=== PATIENT | female | born 1955 | race African-American/Black ===

== ENCOUNTER 2017-03-22 10:27 | Emergency (ER) | payer OTHER ==
[~2017-03-22] VITALS: Ht 152.4 cm; Wt 63.5 kg
[2017-03-22 10:56] VITALS: BP 220/90
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
[2017-03-22] MEDS ORDERED: ORPH100T PO (12:29)
[2017-03-22] MEDS ORDERED: HYDR12.58 PO (12:29)
[2017-03-22] MEDS ORDERED: HYDR-971 PO (12:29)
== END 2017-03-22 12:41 | disposition home or self-care (01) ==
LOC: ER 10:27
DX: S16.1XXA Strain of muscle, fascia and tendon at neck level, initial encounter (principal); S39.012A Strain of muscle, fascia and tendon of lower back, initial encounter; S80.02XA Contusion of left knee, initial encounter; I10 Essential (primary) hypertension; E11.9 Type 2 diabetes mellitus without complications; V43.53XA Car driver injured in collision with pick-up truck in traffic accident, initial encounter; Y92.413 State road as the place of occurrence of the external cause; Y93.89 Activity, other specified; Y99.8 Other external cause status
CPT/HCPCS: 72040; 72100; 73562; 99284

== ENCOUNTER 2019-03-06 20:44 | Emergency (ER) | payer BC, OTHER ==
[~2019-03-06] VITALS: Ht 152.4 cm; Wt 65.8 kg
[~2019-03-06 20:44] MED LIST: HYDR-3164 PO; HYDR12.58 PO; ORPH100T PO
[2019-03-06 21:30] VITALS: BP 182/104
[2019-03-06] MEDS ORDERED: NAPROXEN 500 MG TABLET PO STA (21:51)
[2019-03-06] MEDS ORDERED: LIDOCAINE 1% PF 2 ML VIAL. INJ ONE (22:00)
[2019-03-06] MEDS ORDERED: HYDROcodone/APAP 5/325MG 1 TAB TABLET PO ONE (22:00)
[2019-03-06] MEDS ORDERED: cefTRIAXone IM 1 GM VIAL IM ONE (22:00)
[2019-03-06] MEDS ORDERED: NAPROXEN 500 MG TABLET PO ONE (22:00)
--- NOTE | 2019-03-06 22:22 | PHYS DOC ---
Past Medical History Past Medical History: Diabetes-Type II, Hypertension Past Surgical History: Tubal ligation Alcohol Use: None Drug Use: None Adult General Chief Complaint Chief Complaint: FINGER INJURY HPI HPI Patient is a 63 year old female with history of diabetes type 2, hypertension who presents to the ED today with right index finger infection. 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 She states she noted swelling that has increasingly gotten worse by today. Denies any fever. Patient is right-handed. Review of Systems Review of Systems Constitutional: Denies fever or chills [] Musculoskeletal: Denies back pain or joint pain [] Integument: Reports right index finger swelling Neurologic: Denies headache, focal weakness or sensory changes [] All other systems were reviewed and found to be within normal limits, except as documented in this note. Current Medications Current Medications Current Medications Medications (Trade) Dose Ordered Sig/Brett Start Time Stop Time Status Last Admin Dose Admin Acetaminophen/ Hydrocodone Bitart (Lortab 5/325) 2 tab 1X ONCE 03/06/19 22:00 03/06/19 22:01 DC 03/06/19 22:04 2 TAB Ceftriaxone Sodium (Rocephin Im) 1 gm 1X ONCE 03/06/19 22:00 03/06/19 22:01 DC 03/06/19 22:04 1 GM Lidocaine HCl (Xylocaine-Mpf 1% 2ml Vial) 2 ml 1X ONCE 03/06/19 22:00 03/06/19 22:01 DC Naproxen (Naprosyn) 500 mg 1X STAT 03/06/19 21:51 03/06/19 21:52 UNV Allergies Allergies Allergies Coded Allergies Type Severity Reaction Last Updated Verified No Known Drug Allergies 03/22/17 No Physical Exam Physical Exam Constitutional: Well developed, well nourished, no acute distress, non-toxic appearance. [] Skin: Ventral aspect of the right index finger with moderate swelling and redness consistent of an abscess with cellulitis. The center of this swelling has discoloration consistent with a blood blister. Sensation intact to the right index finger. Patient able to flex and extend the finger with the slightly difficult at the DIP joint due to pain. Adequate radius sensation to the right index finger. +2 right radial pulse. Cap refill less than 2 seconds the right index finger Back: No tenderness, no CVA tenderness. [] Extremities: No tenderness, no cyanosis, no clubbing, ROM intact, no edema. [] Neurologic: Alert and oriented X 3, normal motor function, normal sensory function, no focal deficits noted. [] Psychologic: Affect normal, judgement normal, mood normal. [] Current Patient Data Vital Signs Vital Signs Date Time Temp Pulse Resp B/P (MAP) Pulse Ox O2 Delivery O2 Flow Rate FiO2 03/06/19 21:30 98.3 99 18 182/104 (130) 99 Room Air 98.3 EKG EKG [] Radiology/Procedures Radiology/Procedures Indication: abscess right index finger Procedure: The patient was positioned appropriately. Local anesthesia was note applicable. The finger was cleaned with normal saline and Betadine. An incision was then made over the apex of the lesion with an 11 blade and mild amount of bloody purulent material was expressed. The drainage cavity was irrigated and covered with sterile gauze. The patients tetanus status updated as needed. The patient tolerated the procedure well. Complications: none. Course & Med Decision Making Course & Med Decision Making Pertinent Labs and Imaging studies reviewed. (See chart for details) This is a 63-year-old female patient presenting to the ED today with abscess with cellulitis to the right index finger. Abscess was drained by me as noted in procedures. Tetanus updated. Wound care instructions and return precautions provided. Discharged on Bactrim and cephalexin. Follow-up with primary care doctor in the course of next week. Dragon Disclaimer Dragon Disclaimer This electronic medical record was generated, in whole or in part, using a voice recognition dictation system. Departure Departure Impression: Primary Impression: Abscess of index finger Additional Impression: Cellulitis of index finger Disposition: 01 HOME, SELF-CARE Condition: STABLE Referrals: DEDRICK VALENZUELA (PCP) follow up in the course of this week Patient Instructions: Abscess, Care After, Cellulitis Additional Instructions: You were evaluated in the emergency room for right index finger abscess with cellulitis. Please soak the right index finger in warm water with Epsom salt to 2-3 times a day. Keep the area covered if draining. Please take the prescribed antibiotics as ordered. Please follow-up with your doctor in the course of this week. Come back to the ED at any point symptoms worsen. Scripts Hydrocodone/Apap 5-325 (NORCO 5-325 TABLET) 1 Each Tablet 1 TAB PO Q6HRS, #20 TAB Prov: HOLLEY RAMÍREZ APRN 03/06/19 Cephalexin (CEPHALEXIN) 500 Mg Tablet 1 TAB PO QID, #40 TAB Prov: HOLLEY RAMÍREZ APRN 03/06/19 Sulfamethoxazole/Trimethoprim (BACTRIM 400-80 MG TABLET) 1 Each Tablet 1 TAB PO BID, #20 TAB Prov: HOLLEY RAMÍREZ APRN 03/06/19 Problem Qualifiers Additional Impression: Cellulitis of index finger Laterality: right Qualified Codes: L03.011 - Cellulitis of right finger HOLLEY RAMÍREZ APRN Mar 06, 2019 22:22
[2019-03-06] MEDS ORDERED: CEPH500T PO (22:30)
[2019-03-06] MEDS ORDERED: HYDR-3164 PO (22:30)
[2019-03-06] MEDS ORDERED: SULF1TAB23 PO (22:30)
[2019-03-06] MEDS ORDERED: DIPHTH,PERTUSS(ACELL),TET TOX 0.5 ML DISP.SYRIN. VAX IM ONE (22:45)
--- NOTE | 2019-03-07 08:01 | RAD ---
Examination: FINGER(S) RIGHT History: RIGHT INDEX FINGER ABCESS Comparison/Correlation: None Findings: Total 3 images of the right third digit were obtained. This includes a PA view of the hand, oblique view, lateral view of the second digit. Marked soft tissue swelling of the index finger is noted distally. Surrounding bandages at this site may limit detection for fine detail. Minimal degenerative change involving the distal interphalangeal joint of the index finger is noted. No focal bony destruction identified. Impression: Soft tissue swelling of the second digit distally. No evidence of osteomyelitis but further evaluation should be considered if clinical concern is present. Electronically signed by: Williams Main MD (03/07/2019 7:57 AM) [facility]
== END 2019-03-06 23:00 | disposition home or self-care (01) ==
LOC: ER 20:44
DX: L02.511 Cutaneous abscess of right hand (principal); L03.011 Cellulitis of right finger; E11.9 Type 2 diabetes mellitus without complications; I10 Essential (primary) hypertension; Z98.51 Tubal ligation status
CPT/HCPCS: 10060; 73140; 90471; 90715; 96372; 99283; J0696